=== PATIENT | male | born 1970 | race Caucasian/White ===

== ENCOUNTER 2024-01-14 18:43 | Emergency (ER) | payer OTHER ==
[~2024-01-14] VITALS: Ht 172.7 cm; Wt 75.0 kg
--- NOTE | 2024-01-14 19:09 | ED.PDOC ---
History of Present Illness HPI Comments 53-year-old male presents with a chief complaint of right ankle pain. Patient states that he twisted his ankle today. Patient reports that pain is localized to the lateral aspect of his right ankle. Patient denies any trauma or falls. Patient did not lose consciousness or hit his head. Patient is able to ambulate, but is painful to apply weight on the ankle. No other symptoms or modifying factors present at this time. Time Seen by MD: 19:00 Primary Care Provider: [place] Daley Notes: Medications, Allergies Allergies: Coded Allergies: NO KNOWN ALLERGIES (Unverified , 09/17/15) Information Source: Patient Mode of Arrival: Ambulatory Severity: Moderate Timing: Hours Duration: Since onset Prehospital treatment: None Physical Exam General: Awake, alert and oriented. No acute distress. Skin: Skin in warm, dry and intact without rashes or lesions. HEENT: The head is normocephalic and atraumatic. Conjunctivae are clear without exudates or hemorrhage. Sclera is non-icteric. Neck: Normal range of motion. No JVD. Cardiac: Regular rate Respiratory: No signs of respiratory distress. No Stridor. Extremities: Right ankle is edematous, tender, erythematous over the lateral malleolus. Strength, sensation, DP pulse intact. Normal capillary refill. Decreased range of motion due to pain. Neurological: The patient is awake, alert and oriented to person, place, and time with normal speech. Speech is clear. There is no facial asymmetry. Psychiatric: Appropriate mood and affect. Good judgement and insight. No visual or auditory hallucinations. No suicidal or homicidal ideation. Review of Systems: REVIEW OF SYSTEMS: No fever, no chills, HEENT: No neck pain, no blurred vision Cardiac: No chest pain. No palpitations. Lungs: No shortness of breath, GI: No abdominal pain, no vomiting Musculoskeletal: Right ankle pain and swelling , no back pain Skin: No rash, No laceration Neuro: No headache, no dizziness, no syncope Past Medical History PAST MEDICAL HISTORY: Anxiety, CAD, NE Family History Family History: Unknown Social History Smoker: Cigarettes Alcohol: Denies ETOH Use Drugs: Denies Drug Use Lives In: Home Was a procedure done? Was a procedure done?: No Differential Dx Considerations may include: Ankle fracture, ankle sprain, hematoma, laceration, ligamentous or tendinous injury, neurovascular injury, other Time of 1ST Reevaluation: 19:37 Reevaluation 1ST: Unchanged Patient Education/Counseling: Diagnosis, Treatment, Prognosis Family Education/Counseling: No Family Present Departure 1 Departure Time of Disposition: 19:42 Impression: Primary Impression: Ankle injury Disposition: 01 HOME / SELF CARE / HOMELESS Condition: Stable Additional Instructions: ED DISCHARGE INSTRUCTIONS Instructions: Please read all instructions provided in this packet carefully. Follow up here or with your primary care provider or return to the emergency department within 1 week for repeat x-ray of the ankle to rule out a small break. Keep ankle in splint and use crutches until then. Although you have been discharged from the Emergency Department, this does not mean that you have a "clean bill of health". No definitive diagnosis for your symptoms has been made today. It is possible that you are in the process of developing a serious illness. This is why you must return to the ED without fail if any new or worsening symptoms (especially if your symptoms include worsening pain, numbness, tingling, change in color to the foot, worsening leg swelling, chest pain, trouble breathing, abdominal pain, fever, headache, confusion, trouble seeing, or trouble walking) It is also very important that you see a primary care doctor within the next 7 days to follow up. If you are unable to get an appointment, return to the ED for re-evaluation. Rest, Ice, Compression, and Elevation (RICE) Skip Navigation Overview As soon as possible after an injury, such as a knee or ankle sprain, you can relieve pain and swelling and promote healing and flexibility with RICERest, Ice, Compression, and Elevation. Rest. Rest and protect the injured or sore area. Stop, change, or take a break from any activity that may be causing your pain or soreness. Ice. Apply an ice or cold pack right away to prevent or minimize swelling. Cold will reduce pain and swelling. Apply the ice or cold pack for 10 to 20 minutes, 3 or more times a day. After 48 to 72 hours, if swelling is gone, apply heat to the area that hurts. Do not apply ice or heat directly to the skin. Place a towel over the cold or heat pack before applying it to the skin. Also, ice after any prolonged activity or vigorous exercise. Compression. Wrap the injured or sore area with an elastic bandage (such as an Lucas wrap) to help decrease swelling. Don't wrap it too tightly, because this can cause more swelling below the affected area. Loosen the bandage if it gets too tight. Signs that the bandage is too tight include numbness, tingling, increased pain, coolness, or swelling in the area below the bandage. Talk to your doctor if you think you need to use a wrap for longer than 48 to 72 hours; a more serious problem may be present. Elevation. Elevate the injured or sore area on pillows while applying ice and anytime you are sitting or lying down. Try to keep the area at or above the level of your heart to help minimize swelling. Related Information Current as of: September 11, 2023 Author: [employer], [employer] Clinical Review Board All A[employer] education is reviewed by a team that includes physicians, nurses, advanced practitioners, registered dieticians, and other healthcare professionals. e-Prescriptions Ibuprofen (Ibuprofen) 600 Mg Tab 1 TAB PO TID for 5 Days, #15 TAB Prov: CHANDRIKA PEMBERTON MD 01/14/24 Acetaminophen (Acetaminophen Er) 650 Mg Tab 650 MG PO Q6HPRN PRN for 5 Days, #20 TAB Prov: CHANDRIKA PEMBERTON MD 01/14/24 Comments 53-year-old male with right ankle injury. No fracture identified on x-ray by independent interpretation. Given severity of swelling, pain. Patient placed in splint, provided with crutches. Advised to return to the emergency department or with primary care provider within 1 week for repeat x-rays. I reviewed the following notes from the pt's past medical encounters: 09/2015 hospital encounter for angina. The following tests were ordered, and results were reviewed by me: Right ankle x-ray Additional information was gathered from interviewing the following independent historians: N/A I reviewed and agreed with the following test results read by other providers: Right ankle x-ray I discussed treatments and results with patient Critical Care Note Critical Care Time?: No Stability Stability form required: No I personally scribed for CHANDRIKA PEMBERTON MD ([email or web address]) on 01/14/24 at 19:09. Electronically submitted by Parvez Hare ([email or web address]). CHANDRIKA PEMBERTON MD Jan 14, 2024 19:09
[2024-01-14] MEDS ORDERED: IBUP-1454 PO (19:49)
[2024-01-14] MEDS ORDERED: ACET650T12 PO (19:49)
--- NOTE | 2024-01-14 19:49 | DVH ---
CLINICAL INDICATION: injury pain swelling TECHNIQUE: XY R ANKLE 3 VIEW Comparison: None FINDINGS/IMPRESSION: There is no evidence of acute fracture or dislocation. Soft tissue swelling overlying lateral malleolus
[2024-01-14] MEDS: ACETAMINOPHEN 325 MG TAB PO ONE (20:10)
[2024-01-14] MEDS: traMADol HCL 50 MG TAB PO ONE (20:11)
[2024-01-14 23:20] VITALS: BP 158/81; PULSE 81; RESP 18; TEMP 98.8; O2SAT 97
== END 2024-01-14 23:35 | disposition home or self-care (01) ==
LOC: ER 18:43
DX: S99.811A Other specified injuries of right ankle, initial encounter (principal); I25.10 Atherosclerotic heart disease of native coronary artery without angina pectoris; I25.2 Old myocardial infarction; F41.9 Anxiety disorder, unspecified; F17.210 Nicotine dependence, cigarettes, uncomplicated; X50.1XXA Overexertion from prolonged static or awkward postures, initial encounter; Y93.89 Activity, other specified; Y92.89 Other specified places as the place of occurrence of the external cause; Y99.0 Civilian activity done for income or pay
CPT/HCPCS: 29515; 73610